=== PATIENT | male | born 1930 | race Caucasian/White ===

== ENCOUNTER 2017-02-21 17:21 | Emergency (ER) | payer OTHER ==
[2017-02-21 17:34] VITALS: O2SAT 96
--- NOTE | 2017-02-21 18:21 | EDPHY ---
H & P Smoking Status: Never smoked Time Seen by Provider: 02/21/17 17:57 HPI/ROS: CHIEF COMPLAINT: Infection left great toe HISTORY OF PRESENT ILLNESS: 86-year-old male presents to the emergency department with infection in his left great toe. The patient states for 5 days ago he was seen by a drive man in [place], [place] and had some debridement to a blister that was on his left great toe. He states yesterday he noticed that there was more drainage from the toe and today especially has noticed more redness and warmth. 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 He states that he does however have a sense "that something is going on in my left toe." He does have mild pain in his left calf. Denies pain in his groin. Denies chest pain or difficulty breathing. No known fevers. REVIEW OF SYSTEMS: Constitutional: No fever, no chills. Eyes: No double or blurry vision. ENT: No sore throat. Respiratory: No cough, no shortness of breath. Cardiac: No chest pain. Gastrointestinal: No abdominal pain, vomiting or diarrhea. Genitourinary: No dysuria. Musculoskeletal: No neck or back pain. Skin: No rashes. Neurological: No headache. (Shantel Ayala) Past Medical/Surgical History: Pacemaker, atrial fibrillation, bypass, cholecystectomy, non-Hodgkin's lymphoma treated in 2012 (Shantel Ayala) Social History: Lives in [place], [place] (Shantel Ayala) Physical Exam: General Appearance: Alert, no distress. 36.5 temperature Eyes: Pupils equal and round. Extraocular motions are all intact. ENT: Mouth: Mucous membranes moist. Respiratory: No wheezing, rhonchi, or rales, lungs are clear to auscultation. Cardiovascular: Regular rate and rhythm. Gastrointestinal: Abdomen is soft and nontender, no masses, no rebound or guarding, bowel sounds normal. Neurological: Alert and oriented x 3, cranial nerves II through XII grossly intact Skin: Left great toe reveals proud flesh to the distal both anterior and posterior aspect of the left great toe. He has diffuse redness that extends down into the 1st metatarsal. It is warm to palpate. Is nontender to palpate. No pustules or vesicular lesions noted. Redness does not extend beyond the dorsal aspect of his left foot. Warm and dry, no rashes. Musculoskeletal: Nontender to palpate along the cervical, thoracic or lumbar spine. Neck is supple. Extremities: Full range of motion and no peripheral edema. Full range of motion of his left lower extremity. Psychiatric: Patient is oriented X 3, there is no agitation. (Shantel Ayala) Constitutional: Initial Vital Signs Temperature (C) 36.5 C 02/21/17 17:29 Heart Rate 60 02/21/17 17:29 Respiratory Rate 16 02/21/17 17:29 Blood Pressure 144/64 H 02/21/17 17:29 O2 Sat (%) 96 02/21/17 17:29 O2 Delivery Mode Room Air Allergies/Adverse Reactions: diphenhydramine [From Benadryl] Allergy (Verified 02/21/17 17:34) Penicillins Allergy (Verified 02/21/17 17:34) narcotic Allergy (Uncoded 02/21/17 17:35) Home Medications: Medication Instructions Recorded Ativan 02/21/17 Cephalexin [Keflex] 500 mg PO TID #21 cap 02/21/17 Losartan Potassium 02/21/17 Pradaxa 02/21/17 Sulfamethox/Tmp 800/160 mg 1 tab PO BID #14 tab 02/21/17 [Bactrim DS] Synthroid 02/21/17 Zoloft 25mg (*) 02/21/17 Medical Decision Making - Diagnostics Imaging: I viewed and interpreted images myself - Diagnostics Imaging Results: Imaging Impressions Toe X-Ray 02/21/17 18:17 Impression: No definite acute osseous abnormality with degenerative changes and osseous demineralization noted. ED Course/Re-evaluation: The patient was evaluated and managed by the physician's geriatric nursing assistant. My cosignature indicates that I reviewed the chart and I agree with the findings and plan of care as documented. I am the secondary supervising physician. ( Holly Oneill) 86-year-old male presents to the emergency department with infection to his left great toe. X-rays reveal no evidence of osteomyelitis. Laboratory studies including white blood cell count were all within normal limits. The patient was also seen and examined by Dr. Holly Oneill, secondary supervising physician. Dr. Holly Oneill discussed with the patient admission with IV antibiotics versus oral antibiotics. Both the patient and the son at bedside, requested oral antibiotics. He will be treated with oral Keflex and Bactrim. He has taken these antibiotics in the past. He was instructed to follow up with primary care provider on Thursday to recheck. He was also instructed to return to the emergency department if he developed a fever, lymphangitic streaking, or if he seems worse in any way. Both the patient and the son at bedside were comfortable with this plan. (Shantel Ayala ) Differential Diagnosis: Including but not limited to cellulitis, wound infection, sepsis, osteomyelitis (Gissel Ayaladonald Bowen) - Data Points Laboratory Results: Laboratory Results 02/21/17 18:35 02/21/17 18:35 02/21/17 02/21/17 18:35 18:35 WBC 8.81 10^3/uL 10^3/uL (3.80-9.50) RBC 5.29 10^6/uL 10^6/uL (4.40-6.38) Hgb 16.4 g/dL g/dL (13.7-17.5) Hct 49.4 % % (40.0-51.0) MCV 93.4 fL fL (81.5-99.8) MCH 31.0 pg pg (27.9-34.1) MCHC 33.2 g/dL g/dL (32.4-36.7) RDW 14.1 % % (11.5-15.2) Plt Count 153 10^3/uL 10^3/uL (150-400) MPV 11.2 fL fL (8.7-11.7) Neut % (Auto) 72.4 % % (39.3-74.2) Lymph % (Auto) 14.0 % L % (15.0-45.0) [place] % (Auto) 12.0 % % (4.5-13.0) Eos % (Auto) 0.8 % % (0.6-7.6) Baso % (Auto) 0.5 % % (0.3-1.7) Nucleat RBC Rel Count 0.0 % % (0.0-0.2) Absolute Neuts (auto) 6.38 10^3/uL 10^3/uL (1.70-6.50) Absolute Lymphs (auto) 1.23 10^3/uL 10^3/uL (1.00-3.00) Absolute Monos (auto) 1.06 10^3/uL H 10^3/uL (0.30-0.80) Absolute Eos (auto) 0.07 10^3/uL 10^3/uL (0.03-0.40) Absolute Basos (auto) 0.04 10^3/uL 10^3/uL (0.02-0.10) Absolute Nucleated RBC 0.00 10^3/uL 10^3/uL (0-0.01) Immature Gran % 0.3 % % (0.0-1.1) Immature Gran # 0.03 10^3/uL 10^3/uL (0.00-0.10) Sodium 136 mEq/L mEq/L (134-144) Potassium 4.8 mEq/L mEq/L (3.5-5.2) Chloride 102 mEq/L mEq/L (97-110) Carbon Dioxide 24 mEq/l mEq/l (22-31) Anion Gap 10 mEq/L mEq/L (8-16) BUN 24 mg/dL H mg/dL (7-23) Creatinine 1.1 mg/dL mg/dL (0.7-1.3) Estimated GFR > 60 Glucose 83 mg/dL mg/dL (70-100) Calcium 9.7 mg/dL mg/dL (8.5-10.4) TSH 1.120 uIU/mL uIU/mL (0.465-4.680) Medications Given: Discontinued Medications Cephalexin (Keflex 500 Mg Prepack#4) 1 btl TAKEHOME EDNOW ONE PRN Reason: Protocol Stop: 02/21/17 19:34 Last Admin: 02/21/17 20:10 Dose: 1 btl Trimethoprim/Sulfamethoxazole (Bactrim Ds Prepack#2) 1 btl TAKEHOME EDNOW ONE Stop: 02/21/17 19:35 Last Admin: 02/21/17 20:10 Dose: 1 btl Departure - Departure Disposition: Home, Routine, Self-Care Clinical Impression: Infected blister of great toe of left foot Qualifiers: Encounter type: initial encounter Qualified Code(s): S90.422A - Blister ( nonthermal), left great toe, initial encounter Condition: Good Instructions: Cephalexin (By mouth), Sulfamethoxazole/Trimethoprim (By mouth), Wound Infection (ED) Additional Instructions: You declined admission to the hospital. Please return to the emergency department if you develop a fever, increasing pain, red streaking up your leg, or if you feel worse in any way. Keflex 3 times daily for 1 week. Bactrim twice daily for 1 week. Follow up with primary care provider on Thursday to recheck. Referrals: SELINA,LANDON [Other] - As per Instructions Prescriptions: Cephalexin [Keflex] 500 mg PO TID #21 cap Sulfamethox/Tmp 800/160 mg [Bactrim DS] 1 tab PO BID #14 tab
[2017-02-21 18:48] LABS: % IMMATURE GRANULYOCYTES 0.3 % (0.0-1.1); ABSOLUTE IMMATURE GRANULOCYTES 0.03 10^3/uL (0.00-0.10); ADD DIFF? NO; ADD MORPH? NO; ADD SCAN? NO; ATYPICAL LYMPHOCYTE FLAG 0 (0-99); FRAGMENT RBC FLAG 0 (0-99); HEMATOCRIT 49.4 % (40.0-51.0); HEMOGLOBIN 16.4 g/dL (13.7-17.5); LEFT SHIFT FLG 0 (0-99); LIPEMIA HEMOLYSIS FLAG 80 (0-99); MEAN CELL HEMOGLOBIN CONCENTR. 33.2 g/dL (32.4-36.7); MEAN CELL VOLUME 93.4 fL (81.5-99.8); MEAN PLATELET VOLUME 11.2 fL (8.7-11.7); PLATELET CLUMPS FLAG 0 (0-99); PLATELET COUNT 153 10^3/uL (150-400); RED BLOOD CELL COUNT 5.29 10^6/uL (4.40-6.38); RED CELL DISTRIBUTION WIDTH 14.1 % (11.5-15.2)
[2017-02-21 19:03] LABS: ANION GAP 10 mEq/L (8-16); CALCIUM 9.7 mg/dL (8.5-10.4); CARBON DIOXIDE 24 mEq/l (22-31); CHLORIDE 102 mEq/L (97-110); CREATININE 1.1 mg/dL (0.7-1.3); GLOMERULAR FILTRATION RATE > 60; GLUCOSE 83 mg/dL (70-100); POTASSIUM 4.8 mEq/L (3.5-5.2); SODIUM 136 mEq/L (134-144)
[2017-02-21] MEDS ORDERED: CEPHALEXIN 500MG PREPACK#4 BTL TAKEHOME ONE (19:33)
[2017-02-21] MEDS ORDERED: SULFAMET/TMP DS PREPACK#2 BTL TAKEHOME ONE (19:34)
[2017-02-21 20:12] VITALS: BP 164/80; PULSE 61; RESP 15; TEMP 97.9
== END 2017-02-21 20:22 | disposition home or self-care (01) ==
DX: R23.8 Other skin changes (principal)

== ENCOUNTER 2017-02-23 19:27 | Inpatient (IN) | payer OTHER ==
--- NOTE | 2017-02-23 20:36 | EDPHY ---
H & P Time Seen by Provider: 02/23/17 20:21 HPI/ROS: Chief complaint. Toe infection HPI. 86-year-old male presents with worsening toe infection. He was seen in our emergency department 2 days ago and started on cephalexin and Bactrim. Despite this he has had increased redness and swelling with red streaks today. No fever. 7 days ago the patient had a debridement by car wash attendant automatic of a blister on the tip of his left great toe. He lives in [place] in the [place] apparently works in [place]. X-ray 2 days ago showed no evidence of osteomyelitis. Patient has no other complaints. He has neuropathy and so it really does not hurt. Can feel however that when he puts his hand on it that it feels quite warm and can see the red streaks. ROS Constitutional. no fever/chills, no weakness Eyes. no problems with vision ENT. no sore throat, no nasal drainage Cardiovascular. no chest pain Respiratory. no shortness of breath, no cough Abdominal. no abdominal pain, no nausea/vomiting, no diarrhea . no problems urinating MS. no calf pain/swelling, no neck/back pain, no joint pain Skin. Left great toe swelling redness and red streaks Lymph. no swollen glands Neuro. no headache, no dizziness, no difficulty walking or with speech Past Medical/Surgical History: Past medical history is significant for pacemaker, non-Hodgkin's lymphoma, coronary artery bypass graft, atrial fibrillation Social History: Single, nonsmoker, no alcohol Smoking Status: Never smoked Physical Exam: General Appearance: Alert well-developed male mild distress vital signs stable Eyes: Pupils equal and round no pallor or injection. ENT, Mouth: Mucous membranes are moist. Respiratory: There are no retractions, lungs are clear to auscultation. Cardiovascular: Regular rate and rhythm. Gastrointestinal: Abdomen is soft and nontender, no masses, bowel sounds normal. Neurological: Awake and alert, sensory and motor exams grossly normal. Skin: Warm and dry, no rashes. Musculoskeletal: Neck is supple nontender. Extremities the roof left great toe shows non intact skin from blister removal. The toe is swollen diffusely. There is no drainage. Redness extends beyond the line margin that was drawn 2 days ago. He also has red streaks going up the dorsum of his foot Psychiatric: Patient is oriented X 3, there is no agitation. Constitutional: Initial Vital Signs Temperature (C) 36.9 C 02/23/17 19:32 Heart Rate 60 02/23/17 19:32 Respiratory Rate 16 02/23/17 19:32 Blood Pressure 158/73 H 02/23/17 19:32 O2 Sat (%) 96 02/23/17 19:32 O2 Delivery Mode Room Air Allergies/Adverse Reactions: barley Allergy (Verified 02/23/17 19:38) diphenhydramine [From Benadryl] Allergy (Verified 02/23/17 19:38) lentils Allergy (Verified 02/23/17 19:38) peas Allergy (Verified 02/23/17 19:38) Penicillins Allergy (Verified 02/23/17 19:38) narcotic Allergy (Uncoded 02/21/17 17:35) Home Medications: Medication Instructions Recorded Ativan 02/21/17 Cephalexin [Keflex] 500 mg PO TID #21 cap 02/21/17 Losartan Potassium 02/21/17 Pradaxa 02/21/17 Sulfamethox/Tmp 800/160 mg 1 tab PO BID #14 tab 02/21/17 [Bactrim DS] Synthroid 02/21/17 Zoloft 25mg (*) 02/21/17 Medical Decision Making Procedures: IV normal saline. Vancomycin IV. Blood cultures. ED Course/Re-evaluation: I have recommended admission. The patient, his son, and I discussed treatment plan and the fact that this is failed outpatient management. They expressed understanding and agreement I consulted and discussed case with Dr. Mahajan, hospitalist who agrees to the admission After blood cultures patient is given a g of vancomycin IV Differential Diagnosis: Cellulitis and now lymphangitis after podiatry debridement of a blister on left great toe. Cephalexin and Bactrim for 2 days with worsening symptoms. Plan is admission. Failed outpatient antibiotic management Departure - Departure Disposition: [facility] Inpatient Acute Clinical Impression: Cellulitis Qualifiers: Site of cellulitis: extremity Site of cellulitis of extremity: toe Laterality: left Qualified Code(s): L03.032 - Cellulitis of left toe Condition: Fair Referrals: MCCHERMINIOLA,UNKNOWN [Other] - As per Instructions
[2017-02-23] MEDS ORDERED: VANCOMYCIN HCL/NORMAL SALINE 250 ML IV ONE (20:50)
[2017-02-23 21:13] LABS: % IMMATURE GRANULYOCYTES 0.5 % (0.0-1.1); ABSOLUTE IMMATURE GRANULOCYTES 0.04 10^3/uL (0.00-0.10); ADD DIFF? NO; ADD MORPH? NO; ADD SCAN? NO; ATYPICAL LYMPHOCYTE FLAG 0 (0-99); FRAGMENT RBC FLAG 0 (0-99); HEMATOCRIT 49.1 % (40.0-51.0); HEMOGLOBIN 16.5 g/dL (13.7-17.5); LEFT SHIFT FLG 0 (0-99); LIPEMIA HEMOLYSIS FLAG 80 (0-99); MEAN CELL HEMOGLOBIN CONCENTR. 33.6 g/dL (32.4-36.7); MEAN CELL VOLUME 92.1 fL (81.5-99.8); MEAN PLATELET VOLUME 10.8 fL (8.7-11.7); PLATELET CLUMPS FLAG 0 (0-99); PLATELET COUNT 157 10^3/uL (150-400); RED BLOOD CELL COUNT 5.33 10^6/uL (4.40-6.38); RED CELL DISTRIBUTION WIDTH 14.3 % (11.5-15.2)
[2017-02-23 21:23] LABS: INR 1.36 (0.83-1.16); PROTIME(PATIENT) 16.8 SEC (12.0-15.0)
[2017-02-23 21:37] LABS: ANION GAP 10 mEq/L (8-16); BILIRUBIN,TOTAL 0.8 mg/dL (0.1-1.4); CALCIUM 9.7 mg/dL (8.5-10.4); CARBON DIOXIDE 24 mEq/l (22-31); CHLORIDE 100 mEq/L (97-110); CREATININE 1.4 mg/dL (0.7-1.3); GLOMERULAR FILTRATION RATE 48; GLUCOSE 97 mg/dL (70-100); POTASSIUM 4.6 mEq/L (3.5-5.2); SODIUM 134 mEq/L (134-144)
[2017-02-23 22:10] LABS: LACGHOST ORDER
[2017-02-23] MEDS ORDERED: ONDANSETRON 4 MG/2 ML VIAL IVP PRN (22:53)
[2017-02-23] MEDS ORDERED: ACETAMINOPHEN 325 MG TAB PO PRN (22:53)
[2017-02-23] MEDS ORDERED: ONDANSETRON DISINTEGRATING 4 MG TAB PO PRN (22:53)
[2017-02-23] MEDS ORDERED: NS 1,000 ML IV SCH (23:00)
--- NOTE | 2017-02-23 23:04 | PDGENHP ---
History and Physical - Chief Complaint Acute erythema - History of Present Illness primary care provider: [facility] HPI: 86-year-old male presenting with acutely worsening erythema located in his left lower extremity notably around the great toe characterized as streaking proximally from that area with associated warmth, soft tissue edema, recent purulent drainage from the distal great toe. Onset of symptoms was several days ago and duration has been progressively worsening thereafter. Patient initially presented to our emergency department on 02/21/2017 had an x- ray which did not demonstrate definitive osteomyelitis was discharged on Keflex and Bactrim. He has been adherent to these medications as well as all of his other home medications despite this the area has continued to worsen. He denies any recent trauma to the left lower extremity but does endorse that he has neuropathy which prevents sensation on both the dorsal and plantar surfaces of his feet. History Information - Allergies/Home Medication List Allergies/Adverse Reactions: barley Allergy (Verified 02/23/17 19:38) diphenhydramine [From Benadryl] Allergy (Verified 02/23/17 19:38) lentils Allergy (Verified 02/23/17 19:38) peas Allergy (Verified 02/23/17 19:38) Penicillins Allergy (Verified 02/23/17 19:38) narcotic Allergy (Uncoded 02/21/17 17:35) Home Medications: Cephalexin [Keflex (*)] 500 mg PO TID 02/23/17 [Last Taken 02/23/17 3 caps] Dabigatran Etexilate Mesylate [Pradaxa] 75 mg PO BID 02/23/17 [Last Taken 1 cap] LORazepam [Ativan (*)] 0.5 - 1 mg PO DAILY PRN 02/23/17 [Last Taken 02/23/17 1 tab] Levothyroxine [Synthroid 150 mcg (*)] 150 mcg PO DAILY06 02/23/17 [Last Taken ] Losartan Potassium [Cozaar 25 mg (*)] 25 mg PO DAILY 02/23/17 [Last Taken ] Sertraline HCl [Zoloft 100mg (*)] 100 mg PO DAILY 02/23/17 [Last Taken 02/23/17] Sulfamethox/Tmp 800/160 mg [Bactrim Ds] 1 tab PO BID 02/23/17 [Last Taken 2 tabs] I have personally reviewed and updated: family history, medical history, social history, surgical history - Past Medical History atrial fibrillation ( with permanent pacemaker), coronary artery disease ( CABG and most recent stents placed in September or October of 2016), CHF ( prior to TAVR surgery) Additional medical history: Non-Hodgkin's lymphoma in 2012 with curative chemotherapy resulting in neuropathy. Left great toe blister. Uncertain about whether he has chronic kidney disease - Surgical History Additional surgical history: TAVR in September or October of 2016. CABG. Permanent pacemaker. Bilateral inguinal hernia repair - Family History Additional family history: mother with some type of degenerative arthritis - Social History Smoking Status: Never smoked Alcohol Use: None Drug Use: None Additional social history: splits time between [place] and [place] Review of Systems ROS: 10pt was reviewed & negative except for what was stated in HPI & below Skin: Reports: other ( erythema, pustules) Physical Exam Temp Pulse Resp BP Pulse Ox 36.9 C 60 18 146/68 H 95 02/23/17 22:52 02/23/17 22:52 02/23/17 22:52 02/23/17 22:52 02/23/17 22:52 Constitutional: no apparent distress, appears nourished, not in pain Eyes: PERRL, anicteric sclera, EOMI Ears, Nose, Mouth, Throat: moist mucous membranes, hearing normal, ears appear normal, no oral mucosal ulcers Cardiovascular: regular rate and rhythym, no murmur, rub, or gallop, other ( diminished pulses bilateral dorsalis pedis, palpable), No edema Respiratory: no respiratory distress, no rales or rhonchi, clear to auscultation Gastrointestinal: normoactive bowel sounds, soft, non-tender abdomen, no palpable masses Skin: other ( blanchable confluent erythema left lower extremity dorsal surface extending from toe proximally to correction up the mid left foot) Neurologic: AAOx3, other ( sensation only to pressure on the dorsum of the left foot as well as the plantar surface, no sensation to fine touch, left foot drop) Psychiatric: interacting appropriately, not encephalopathic, thought process linear, anxious, No agitated Lymph, Heme, Immunologic: lymphangitic streaking ( dorsum of left foot without any extension up the proximal leg) Lab Data & Imaging Review 02/23/17 21:00 02/23/17 21:00 WBC 8.51 10^3/uL (3.80-9.50) 02/23/17 21:00 RBC 5.33 10^6/uL (4.40-6.38) 02/23/17 21:00 Hgb 16.5 g/dL (13.7-17.5) 02/23/17 21:00 Hct 49.1 % (40.0-51.0) 02/23/17 21:00 MCV 92.1 fL (81.5-99.8) 02/23/17 21:00 MCH 31.0 pg (27.9-34.1) 02/23/17 21:00 MCHC 33.6 g/dL (32.4-36.7) 02/23/17 21:00 RDW 14.3 % (11.5-15.2) 02/23/17 21:00 Plt Count 157 10^3/uL (150-400) 02/23/17 21:00 MPV 10.8 fL (8.7-11.7) 02/23/17 21:00 Neut % (Auto) 73.5 % (39.3-74.2) 02/23/17 21:00 Lymph % (Auto) 13.9 % (15.0-45.0) L 02/23/17 21:00 [place] % (Auto) 10.7 % (4.5-13.0) 02/23/17 21:00 Eos % (Auto) 0.9 % (0.6-7.6) 02/23/17 21:00 Baso % (Auto) 0.5 % (0.3-1.7) 02/23/17 21:00 Nucleat RBC Rel Count 0.0 % (0.0-0.2) 02/23/17 21:00 Absolute Neuts (auto) 6.26 10^3/uL (1.70-6.50) 02/23/17 21:00 Absolute Lymphs (auto) 1.18 10^3/uL (1.00-3.00) 02/23/17 21:00 Absolute Monos (auto) 0.91 10^3/uL (0.30-0.80) H 02/23/17 21:00 Absolute Eos (auto) 0.08 10^3/uL (0.03-0.40) 02/23/17 21:00 Absolute Basos (auto) 0.04 10^3/uL (0.02-0.10) 02/23/17 21:00 Absolute Nucleated RBC 0.00 10^3/uL (0-0.01) 02/23/17 21:00 Immature Gran % 0.5 % (0.0-1.1) 02/23/17 21:00 Immature Gran # 0.04 10^3/uL (0.00-0.10) 02/23/17 21:00 PT 16.8 SEC (12.0-15.0) H 02/23/17 21:00 INR 1.36 (0.83-1.16) H 02/23/17 21:00 APTT 32.0 SEC (23.0-38.0) 02/23/17 21:00 VBG Lactic Acid 2.2 mmol/L (0.7-2.1) H 02/23/17 21:00 Sodium 134 mEq/L (134-144) 02/23/17 21:00 Potassium 4.6 mEq/L (3.5-5.2) 02/23/17 21:00 Chloride 100 mEq/L (97-110) 02/23/17 21:00 Carbon Dioxide 24 mEq/l (22-31) 02/23/17 21:00 Anion Gap 10 mEq/L (8-16) 02/23/17 21:00 BUN 27 mg/dL (7-23) H 02/23/17 21:00 Creatinine 1.4 mg/dL (0.7-1.3) H 02/23/17 21:00 Estimated GFR 48 02/23/17 21:00 Glucose 97 mg/dL (70-100) 02/23/17 21:00 Calcium 9.7 mg/dL (8.5-10.4) 02/23/17 21:00 Total Bilirubin 0.8 mg/dL (0.1-1.4) 02/23/17 21:00 Visualized and Interpreted imaging results: Yes Interpretation: x-ray of the foot demonstrating no over osteomyelitis but there is notable demineralization of the bone Assessment & Plan Assessment: 86-year-old male presenting with cellulitis and possible osteomyelitis Plan: 1. Cellulitis. Acute, new problem this provider, further workup indicated. Affected area is concerning for underlying osteomyelitis given neuropathy, lymphangitic streaking, worsening despite appropriate treatment with Keflex and Bactrim - perform further evaluation for possible underlying osteo with ESR/CRP, 3 phase bone scan given that MRI cannot be performed due to pacemaker -wound care consultation -infectious Disease consultation - most likely organisms are either staph or strep in the area seems to have more of a staph appearance, patient does not have a history of MRSA infection although he has been frequently hospitalized in the past so exposure is certainly possible -discussed with Dr. Kirby Gabriel in the emergency department, he has informed me that the patient received 1 dose of IV vancomycin, will continue dosing Q 12- 24 hours depending on renal function tomorrow -hold on general surgery consultation until the area has been affectively evaluated with imaging as well as reassessment status post IV antibiotics - will hold Pradaxa in case surgery is indicated in the next 24-48 hours, continuing aspirin given that patient did have stents placed within the last 6 months but we will try to determine what type of stents these were and the exact date 2. Possible acute kidney injury on chronic kidney disease stage 3. unclear baseline creatinine, serum creatinine level has risen since 02/21/2017 emergency department encounter, after receiving Bactrim -unclear whether patient is having acute kidney injury secondary to hypovolemia versus reduced creatinine excretion in the setting of Bactrim -send FENA -repeat serum creatinine in a.m., monitor urine output -order outside records including discharge labs and discharge summary from patient's TAVR hospitalization in [facility] 3. Suspected peripheral arterial disease. Diminished pulses left dorsalis pedis , but palpable - get ABIs to assess given that this will influence non wound healing but also decisions as to whether to pursue surgery if indicated -continue aspirin 4. atrial fibrillation. Unclear type, monitor on telemetry to ensure no rapid ventricular response 5. chronic CHF. Patient unclear as to what type, sounds like it was valvular and occurred prior to his aortic valve repair, as noted above obtain outside records 6. Coronary artery disease. Chronic, reported that last stents were placed on either September or October of this year, unclear type of stents, continue on aspirin and statin Diet. Cardiac Prophylaxis. High risk patient, Pradaxa currently in his system, hold on SCDs given possibility of peripheral arterial disease, will require heparin subcu beginning tomorrow Code. Full code per patient, his sons are his joint MDPOA Disposition. Anticipated discharge uncertain this time, anticipated length stay is greater than 48 hours warranting inpatient admission status for acute cellulitis and possible underlying osteomyelitis requiring further workup as well as possible surgical intervention.
[2017-02-23] MEDS: LORazepam 0.5 MG TAB PO PRN (23:50)
[2017-02-24 01:37] LABS: COLOR YELLOW; LEUKOCYTE ESTERASE,URINE NEGATIVE (NEGATIVE); NITRITE,URINE NEGATIVE (NEGATIVE)
[2017-02-24] MEDS: LEVOTHYROXINE 150 MCG TAB PO SCH (06:36)
[2017-02-24 07:54] LABS: % IMMATURE GRANULYOCYTES 0.3 % (0.0-1.1); ABSOLUTE IMMATURE GRANULOCYTES 0.02 10^3/uL (0.00-0.10); ADD DIFF? NO; ADD MORPH? NO; ADD SCAN? NO; ATYPICAL LYMPHOCYTE FLAG 0 (0-99); FRAGMENT RBC FLAG 0 (0-99); HEMATOCRIT 46.9 % (40.0-51.0); HEMOGLOBIN 15.7 g/dL (13.7-17.5); LEFT SHIFT FLG 0 (0-99); LIPEMIA HEMOLYSIS FLAG 80 (0-99); MEAN CELL HEMOGLOBIN 30.7 pg (27.9-34.1); MEAN CELL HEMOGLOBIN CONCENTR. 33.5 g/dL (32.4-36.7); MEAN CELL VOLUME 91.8 fL (81.5-99.8); MEAN PLATELET VOLUME 10.9 fL (8.7-11.7); PLATELET CLUMPS FLAG 20 (0-99); PLATELET COUNT 138 10^3/uL (150-400); RED BLOOD CELL COUNT 5.11 10^6/uL (4.40-6.38); RED CELL DISTRIBUTION WIDTH 14.3 % (11.5-15.2)
[2017-02-24 08:13] LABS: INR 1.36 (0.83-1.16); PROTIME(PATIENT) 16.8 SEC (12.0-15.0)
[2017-02-24 08:14] LABS: ANION GAP 11 mEq/L (8-16); C-REACTIVE PROTEIN 20.2 mg/L (<10.0); CALCIUM 8.8 mg/dL (8.5-10.4); CARBON DIOXIDE 19 mEq/l (22-31); CHLORIDE 107 mEq/L (97-110); CREATININE 1.2 mg/dL (0.7-1.3); GLOMERULAR FILTRATION RATE 57; GLUCOSE 86 mg/dL (70-100); POTASSIUM 4.5 mEq/L (3.5-5.2); SODIUM 137 mEq/L (134-144)
[2017-02-24 08:15] LABS: APTT 31.9 SEC (23.0-38.0)
[2017-02-24 08:28] VITALS: PULSE 60
[2017-02-24 08:50] LABS: SEDIMENTATION RATE 6 MM/HR (0-20)
[2017-02-24] MEDS: SERTRALINE HCL 100 MG TAB PO SCH (09:15)
--- NOTE | 2017-02-24 11:27 | GCON ---
[f rep st] CONSULTATION INFECTIOUS DISEASE CONSULTATION. DATE OF CONSULTATION: 02/24/2017 REFERRING PHYSICIAN: REASON FOR CONSULTATION: Left great toe erythema with wounds, evaluate for osteomyelitis. CHIEF COMPLAINT: Red left foot. HISTORY OF PRESENT ILLNESS: This is an 86-year-old male, with a past medical history significant for atrial fibrillation, coronary artery disease, CHF, non-Hodgkin's lymphoma, status post chemotherapy, who was admitted yesterday after persistent redness involving the left great toe and foot. He apparently came to the ER on February 21, 2017 when this suddenly developed. At that time an x-ray was done which did not show any acute osteomyelitis-like changes or erosive changes. He was placed on Bactrim and Keflex therapy, however, this did not improve, and thus he came in for further evaluation. He has mild discomfort involving the left great toe. He denies any fevers, he did have some chills yesterday. White blood cell count was within normal range, his ESR was noted to be normal, however, today's C-reactive protein was checked and it is 20.2. Blood cultures x2 sets were done, and those are pending. Patient was cued up for a bone scan. He overall states he feels better in general, with less pain and better general overall well being. Infectious Disease is now consulted for further evaluation and opinion. He did have a blister, a wound that did open up in the left great toe. He went to a infection control coordinator and opened it up, but there was no improvement, this developed about 2 weeks ago. REVIEW OF SYSTEMS: GENERAL: No fevers, but has some shaking chills. HEAD: No headaches. EYES: No change in vision. ENT: No sore throat or difficulty swallowing, no ear pain or drainage. CARDIOVASCULAR: Denies any chest pain, rapid heartbeat. RESPIRATORY: Denies any shortness of breath, occasionally has some phlegm that he coughs up. ABDOMEN: No nausea, vomiting, abdominal pain, or diarrhea. : Does have decreased urine stream in general, but denies any burning with urination. BACK: Denies any back pain or flank pain. MUSCULOSKELETAL: Denies any other joint pains or muscle aches. SKIN: As above. Rest of 10-point review of systems it essentially negative except for above. PAST MEDICAL HISTORY: Significant for CHF, coronary artery disease, atrial fibrillation. Non-Hodgkin's lymphoma, status post chemotherapy, last dose he states was in 2013. PAST SURGICAL HISTORY: Significant for CABG, permanent pacemaker, bilateral inguinal hernia repair, TAVR. ALLERGIES: To penicillin, which gives him a rash without shortness of breath or throat swelling. FAMILY HISTORY: Significant for coronary artery disease. SOCIAL HISTORY: He is a nonsmoker, he does not drink alcohol. MEDICATIONS: As per MAR. PHYSICAL EXAMINATION: VITAL SIGNS: Temperature 36.8, pulse is 60, blood pressure 151/69, saturations are 95% on room air, respiratory rate is 14. GENERAL: He is resting in bed, in no acute respiratory distress. Awake, alert , oriented x3. HEENT: Head is normocephalic, atraumatic. Pupils are equal, round, reactive to light. There is no conjunctival injection. No petechiae noted. Oropharynx is clear. There is no posterior erythema or thrush. CARDIOVASCULAR: S1 and S2, regular rate and rhythm. He has a soft systolic murmur present. RESPIRATORY: Clear to auscultate bilaterally. No rhonchi or rales appreciated. ABDOMEN: Positive bowel sounds in all 4 quadrants. Soft, nontender. No obvious organomegaly appreciated. EXTREMITIES: No lower extremity edema. MUSCULOSKELETAL: No obvious joint effusions or pain on palpation of the joints. SKIN: Pertinent findings with erythema involving the left great toe, with some extension to the dorsum of the foot in a streaking fashion. The skin is warm to touch. There is no obvious erythema involving the leg or thigh. He has a superficial wound noted on the left great toe on the medial aspect, with some necrotic changes noted. Skin is sensitive to the touch. LABORATORY DATA: White cell count is 7.5, hemoglobin 15.7, platelet count 138, neutrophil count of 72, ESR 6. His lactic acid on admission is 2.2, down to 1.3. Sodium 137, potassium 4.5, chloride 100, bicarb is 19, BUN is 21, creatinine is 1.2. C-reactive protein is 20.2. Urinalysis unremarkable, negative nitrites, negative leukocyte esterase. No protein. Blood cultures x2 sets are pending. Imaging results on his previous visit to the ED were reviewed and as stated above. ASSESSMENT: Left great toe cellulitis with lymphangitic spread, associated with a chronic left great toe wound with early necrotic changes. Evaluate further for osteomyelitis. PLAN: Patient is currently on vancomycin, which we will continue for now, closely monitor his renal function and followup with a trough prior to his 4th dose. A bone scan has been ordered, although I feel that this is a nonspecific study and would rather do a CT with low-dose contrast to further evaluate. Discussed with the radiologist and care coordinated with the hospitalist team.. Continue vancomycin, follow blood cultures. Plan of care was reviewed with the patient in detail. I thank you very much for the opportunity to care for your patient. /[id number]/MODL MTDD
[2017-02-24] MEDS: VANCOMYCIN HCL/NORMAL SALINE 250 ML IV SCH ×2 (11:40→23:27)
--- NOTE | 2017-02-24 12:22 | WOCRNPDOC ---
ROSSANACRCatherine Advanced Assessment Note - Skin Integrity Problem, Advanced Assess Left First Toe Dressing Type: Adaptic Touch, Coban (contraindicated 2/2 neuropathy and ischemia at lower extremities), Gauze Dressing Description: Intact Exudate Amount: Moderate Exudate Color: Clear, Reddish/Yellow Exudate Characteristic(s): Serosanguinous Integumentary Issue Intervention: Dressing Applied (Cavilon prep, Aquacel Ag, Mepilex transfer foam, jersey wrap), Dressing Initialed & Dated, Dressing Removed Michelle Wound Tissue: Erythema (with streaks extending along dorsal and plantar foot), Swollen Michelle Wound Swelling: Moderate Wound Bed Color: Black, [place], Purple Wound Bed Constitution: Smooth Tissue, Unstable Eschar (dark, smooth eschar at center of wound bed, approx 0.5 cm shayy.) Wound Edges: Attached, Irregular Site Odor: None Site Measurement - Head-to-Toe Length X Width X Depth (cm): 2 x 3.7 x 0.2 Skin Integrity Problem Comment: Patient and his son report that injury to distal left toe occured, when it "banged into" furniture about 8 days ago. They subsequently consulted a instruction assistant principal who "debrided the tissue." Its current presentation is consistent with that of a deep tissue injury with cellulitis. Patient reports neuropathic "tingling" sensation during wound care. A protective provisional dressing was placed, as descibed above and in orders, pending results of a work-up to r/o osteomyelitis and a surgical consult. Discussed care with patient, family members, and ALISON Randall.
[2017-02-24] MEDS ORDERED: IOPAMIDOL (ISOVUE-300) 100 ML BTL ONE (13:11)
--- NOTE | 2017-02-24 16:04 | HOSPPROG ---
Hospitalist Progress Note Assessment/Plan: #Left leg cellulitis: cont IV abx. CT negative for osteo (cannot do MRI with pacer) #Suspected CKD: monitor Cr #Atrial fib (unknown duration): rate controlled, pacemaker. Pradaxa restarted #CAD: s/p CABG. stents in Sep. ASA, statin #Compensated CHF: resume home meds #h/o TAVR repair #Diet: regular #DVT ppx: resume Pradaxa #Disp: warrants inpt admission with cellulitis. Cont IV abx Subjective: no fever, chills, sweats Objective: Vital Signs Temp Pulse Resp BP Pulse Ox 36.7 C 60 16 139/74 H 95 02/24/17 15:49 02/24/17 15:49 02/24/17 12:00 02/24/17 15:49 02/24/17 15:49 Laboratory Results 02/24/17 07:48 02/24/17 07:48 02/23/17 02/24/17 02/25/17 05:59 05:59 05:59 Intake Total 700 Output Total 450 350 Balance 250 -350 PT 16.8 SEC (12.0-15.0) H 02/24/17 07:48 INR 1.36 (0.83-1.16) H 02/24/17 07:48 - Physical Exam Constitutional: no apparent distress Eyes: PERRL Ears, Nose, Mouth, Throat: moist mucous membranes Cardiovascular: regular rate and rhythym, no murmur, rub, or gallop Respiratory: no respiratory distress Gastrointestinal: normoactive bowel sounds Genitourinary: no bladder fullness Skin: warm Musculoskeletal: other (left great toe with redness, warmth, streaking over dorsum foot) Neurologic: AAOx3 ICD10 Worksheet Patient Problems: Problems Problem Status Onset Cellulitis Acute
[2017-02-24] MEDS: LOSARTAN POTASSIUM 25 MG TAB PO SCH (17:27)
[2017-02-24] MEDS: DABIGATRAN ETEXILATE MESYL 75 MG CAP PO SCH (20:04)
[2017-02-24] MEDS: LORazepam 0.5 MG TAB PO PRN (23:28)
[2017-02-25] MEDS: LEVOTHYROXINE 150 MCG TAB PO SCH (05:09)
[2017-02-25 05:54] LABS: ALANINE AMINOTRANSFERASE 50 IU/L (21-72); ALBUMIN 3.3 g/dL (3.5-5.0); ALKALINE PHOSPHATASE 65 IU/L (38-126); ANION GAP 9 mEq/L (8-16); ASPARTATE AMINOTRANSFERASE 42 IU/L (17-59); BILIRUBIN,TOTAL 0.8 mg/dL (0.1-1.4); CALCIUM 8.4 mg/dL (8.5-10.4); CARBON DIOXIDE 20 mEq/l (22-31); CHLORIDE 106 mEq/L (97-110); CREATININE 1.1 mg/dL (0.7-1.3); GLOMERULAR FILTRATION RATE > 60; GLUCOSE 101 mg/dL (70-100); POTASSIUM 4.4 mEq/L (3.5-5.2); SODIUM 135 mEq/L (134-144); TOTAL PROTEIN 5.5 g/dL (6.3-8.2)
[2017-02-25] MEDS: LOSARTAN POTASSIUM 25 MG TAB PO SCH (08:31)
[2017-02-25] MEDS: SERTRALINE HCL 100 MG TAB PO SCH (08:31)
[2017-02-25] MEDS: DABIGATRAN ETEXILATE MESYL 75 MG CAP PO SCH (08:31)
--- NOTE | 2017-02-25 08:51 | HOSPPROG ---
Hospitalist Progress Note Assessment/Plan: Obtained OSH records, personally reviewed by me #Left leg cellulitis: cont IV abx. CT negative for osteo (cannot do MRI with pacer) #Suspected CKD: monitor Cr #Atrial fib (unknown duration): rate controlled, pacemaker. Pradaxa restarted #CAD: s/p CABG CLEMENT to mid-RCA. 3 stents to RCA in Sep 2016. Cont ASA, statin, BBstents in Sep. ASA, statin #Compensated systolic CHF (EF 35%): resume home meds #h/o : TAVR Sep 2016 #h/o right axillary DVT: s/p tx #h/o thyroid cancer: thyroidectomy. Cont LT4 #h/o B cell lymphoma #Diet: regular #DVT ppx: resume Pradaxa DC today on PO abx Subjective: no N/V/D. No fevers Objective: Vital Signs Temp Pulse Resp BP Pulse Ox 36.9 C 60 14 148/78 H 92 02/25/17 07:47 02/25/17 07:47 02/25/17 07:47 02/25/17 07:47 02/25/17 07:47 Laboratory Results 02/24/17 07:48 02/25/17 04:40 02/24/17 02/25/17 02/26/17 05:59 05:59 05:59 Intake Total 700 1800 Output Total 450 1300 Balance 250 500 PT 16.8 SEC (12.0-15.0) H 02/24/17 07:48 INR 1.36 (0.83-1.16) H 02/24/17 07:48 - Physical Exam Constitutional: no apparent distress Eyes: PERRL Ears, Nose, Mouth, Throat: moist mucous membranes Cardiovascular: regular rate and rhythym Respiratory: no respiratory distress Gastrointestinal: normoactive bowel sounds Genitourinary: no bladder fullness Musculoskeletal: other (left great toe with less redness, streaking up leg resolved) Neurologic: AAOx3 Psychiatric: interacting appropriately ICD10 Worksheet Patient Problems: Problems Problem Status Onset Cellulitis Acute
[2017-02-25] MEDS ORDERED: IPRATROPIUM 0.06% NASAL SPRAY EACHNARE PRN (10:18)
--- NOTE | 2017-02-25 11:21 | PCMIDPN ---
Assessment/Plan: # LLE cellulitis associated with L great toe injury, now with superficial ulcer. Suspect streptococcal disease but cannot completely r/o staphylococcus --dc on keflex 500mg PO TID (already has supply) + doxycycline 100mg PO BID ( desires p/u at [facility]) --FU wound care on Thursday as below # PCN Allergy : tolerated cephalosporins Follow up appointment wound care [id number] [place] [address] Thursday02/27/2017 at 9am Care coordinated with Dr. Solomon Subjective: patient and son report recession of erythema Objective: Vital Signs Temp Pulse Resp BP Pulse Ox 36.9 C 60 14 148/78 H 92 02/25/17 07:47 02/25/17 07:47 02/25/17 07:47 02/25/17 07:47 02/25/17 07:47 Laboratory Results 02/24/17 07:48 02/25/17 04:40 02/24/17 02/25/17 02/26/17 05:59 05:59 05:59 Intake Total 700 1800 Output Total 450 1300 Balance 250 500 ESR 6 MM/HR (0-20) 02/24/17 07:48 C-Reactive Protein 20.2 mg/L (<10.0) H 02/24/17 07:48 - Physical Exam General Appearance: alert, no apparent distress EENT: No scleral icterus Respiratory: No accessory muscle use Extremities: other (L great toe distal erythema, superficial ulcer 2x3cm tip of toe with serosang fluid and a bit of necrosis centrally, mild tenderness to palpation. Erythema on foot and ankle resolved) Peripheral Pulses: 1+: dorsalis-pedis (R), dorsalis-pedis (L) Skin: No rash Neuro/Psych: alert, normal mood/affect, oriented x 3 - Time Spent With Patient Time Spent with Patient: greater than 25 minutes (reviewed antibiotic plans, risk and benefits, likely organisms causing infection and follow up) Time Spent with Patient: Greater than 25 minutes spent on this patients care, greater than 50% of time spent counseling, educating, and coordinating care regarding the above mentioned plan. ICD10 Worksheet Patient Problems: Problems Problem Status Onset Cellulitis Acute
[2017-02-25 11:44] VITALS: BP 130/67; RESP 16; TEMP 97.4; O2SAT 93
[2017-02-25] MEDS: VANCOMYCIN HCL/NORMAL SALINE 250 ML IV SCH (12:29)
--- NOTE | 2017-02-25 13:20 | GDS ---
[f rep st] DISCHARGE SUMMARY DISCHARGE DIAGNOSES: 1. Left lower extremity cellulitis with left great toe injury. 2. Suspected CKD. 3. Atrial fibrillation. 4. Coronary artery disease, status post coronary artery bypass graft, with right internal mammary a rtery to mid right coronary artery; 3 stents to right coronary artery in September 2016. 5. Compensated systolic heart failure. EF 35%. 6. History of aortic stenosis, status post transcatheter aortic valve replacement in September 2016. 7. History of right axillary deep vein thrombosis. 8. History of thyroid cancer, status post thyroidectomy. 9. History of B-cell lymphoma. HISTORY OF PRESENT ILLNESS: Patient is an 86-year-old male with history of CAD status post CABG, an d recent stents in September 2016, presenting with acutely worsening erythema located in the left lowe r extremity around the great toe. This area has streaking up the leg with warm soft-tissue swelling and purulent drainage from the toe. These all started a couple days ago. He was seen in the [facility] ency room on 02/21/2017. At that time, x-ray did not show osteomyelitis, and he was discharged on K eflex and Bactrim. He has been adherent to these meds, but despite that, the symptoms have gotten w orse. He denies any recent trauma to the left lower leg, but he does endorse that he has neuropathy , thus cannot feel if he injures his toe. HOSPITAL COURSE BY PROBLEM LIST: 1. Left great toe injury with left lower extremity cellulitis: Patient's symptoms improved on IV v ancomycin. He was evaluated by Infectious Disease, and we will discharge on 10 days of Keflex plus doxycycline. He is to follow up with Wound Care on February 27. 2. Chronic kidney disease; creatinine stable. 3. History of coronary artery disease known, CABG with recent stenting to the RCA in September 2016. Continue statin and aspirin. Patient is uncertain if he is still to be on a beta chris; he shoul d follow up with his day guard. 4. History of thyroid cancer, status post thyroidectomy. Continue levothyroxine. 5. History of right axillary DVT, status post treatment with fondaparinux. 6. Atrial fibrillation. ROGELIO score is 2. He is on an aspirin and Pradaxa. 7. History of B-cell lymphoma, stable, status post chemo and radiation. 8. Compensated systolic heart failure with EF of 35%. Continue ANTHONY. He is not on a beta chris. He is uncertain whether he should be taking this. I recommend that he follow up with his cardiolog ist. His heart rate is controlled in the 60s here. DISPOSITION: Patient is stable for discharge. NEW MEDICATIONS: Keflex and doxycycline. FOLLOWUP: 1. Wound care on ThursdayFebruary 27. 2. Cardiology. /[id number]/MODL
[2017-02-26] MEDS ORDERED: Herbals/Supplements -Info Only PO SCH (09:00)
== END 2017-02-25 16:13 | disposition home or self-care (01) | DRG 603 ==
LOC: F3N 23:01
PROVIDERS: ADMIT Internal Medicine; ATTEND Internal Medicine
DX: L03.032 Cellulitis of left toe (principal); S90.422D Blister (nonthermal), left great toe, subsequent encounter; X58.XXXA Exposure to other specified factors, initial encounter; I50.20 Unspecified systolic (congestive) heart failure; C85.90 Non-Hodgkin lymphoma, unspecified, unspecified site; N18.3 Chronic kidney disease, stage 3 (moderate); I48.91 Unspecified atrial fibrillation; I25.10 Atherosclerotic heart disease of native coronary artery without angina pectoris; Z95.1 Presence of aortocoronary bypass graft; Z95.0 Presence of cardiac pacemaker; Z79.82 Long term (current) use of aspirin; Z95.5 Presence of coronary angioplasty implant and graft; Z95.2 Presence of prosthetic heart valve; Z86.718 Personal history of other venous thrombosis and embolism; Z85.850 Personal history of malignant neoplasm of thyroid; Y92.9 Unspecified place or not applicable
CPT/HCPCS: 96365; 97116-GP; 97162-GP; 97165-GO; 97530-GP; 97535-GO; G8978-GP-CJ; G8979-GP-CI; G8980-GP-CI; G8987-GO-CI; G8988-GO-CI; J3370; Q9967